=== PATIENT | female | born 1970 | race Caucasian/White ===

== ENCOUNTER 2020-11-12 02:03 | Emergency (ER) | payer OTHER, SELFPAY ==
[2020-11-12 02:30] LABS: Bilirubin Negative (Negative); Blood, Urine Moderate (Negative); Clarity Cloudy (Clear); Glucose, Urine (Dipstick) Negative (Negative); Ketone, Urine Negative (Negative); Leukocyte Trace (Negative); Nitrite Negative (Negative); Protein, Urine (Dipstick) 30 mg/dL (Neg-Trace); Urobilinogen 0.2 mg/dL (Less than 2); pH, Urine 5.5 (5.0-9.0)
[2020-11-12 02:31] LABS: Hemoglobin 9.2 g/dL (12.0-16.0); Mean Corpuscular HGB CONC 29.2 g/dL (32.0-36.0); Mean Corpuscular Hemoglobin 21.4 pg (27.0-31.0); Mean Corpuscular Volume 73.3 fL (78.0-98.0); Mean Platelet Volume 8.1 fL (7.4-10.4); Platelet Count 276 thou/uL (130-400); Red Blood Cell (RBC) Count 4.28 mill/uL (4.20-5.40); White Blood Cell (WBC) Count 7.3 thou/uL (4.8-10.8)
[2020-11-12 02:37] LABS: #Basophils 0.2 thou/uL (0.0-0.2); #Eosinphils 1.1 thou/uL (0.0-0.7); #Lymphocytes 1.5 thou/uL (1.20-3.40); #Monocytes 0.5 thou/uL (0.11-0.59); #Neutrophils 4.1 thou/uL (1.40-6.50); %Basophils 2.3 % (0.0-1.0); %Eosinophils 14.5 % (0.0-10.0); %Lymphocytes 20.6 % (21.0-51.0); %Monocytes 6.8 % (0.0-10.0); %Neutrophils 55.9 % (42.0-75.0); Bacteria/HPF Rare-Few HPF (None Seen); Mucous/LPF 3+ LPF (<2+)
[2020-11-12 02:38] LABS: Anisocytosis SLIGHT = 6-15 cells (100X) (0-5/hpf); Hypochromia SLIGHT = 6-15 cells (100X) (0-5/hpf); MDiff Complete? YES; Platelet Morphology Comment Appears Adequate; Pregnancy Test - Urine (BHCG) Negative (Negative); Pregu Control Background? CLEAR/WHITE (CLR/WHITE); Pregu Control Bar Appear? YES (CONTROL BAR)
[2020-11-12] MEDS ORDERED: Ketorolac Tromethamine 30 MG/ML VIAL ONE (02:43)
[2020-11-12 02:46] LABS: ALT (SGPT) 9 U/L (8-55); AST (SGOT) 14 U/L (5-34); Albumin 4.3 g/dL (3.5-5.0); Alkaline Phosphatase 44 U/L (40-110); Anion Gap 13 mmol/L (10-20); BUN (Urea Nitrogen) 16 mg/dL (7.0-18.7); Bilirubin, Total 0.3 mg/dL (0.2-1.2); Calc. Creatinine Clearance 0 mL/min (70-130); Calcium 9.1 mg/dL (7.8-10.44); Carbon Dioxide 24 mmol/L (22-29); Chloride 107 mmol/L (98-107); Globulin 3.4 g/dL (2.4-3.5); Glucose 125 mg/dL (70-105); Potassium 3.4 mmol/L (3.5-5.1); Protein, Total 7.7 g/dL (6.0-8.3); Sodium 141 mmol/L (136-145)
[2020-11-12] MEDS ORDERED: Ondansetron PF 4 MG/2 ML Vial ONE ×2 (02:46→03:13)
[2020-11-12] MEDS ORDERED: Promethazine HCl 25 MG/ML VIAL ONE (03:37)
[2020-11-12] MEDS ORDERED: Morphine 4 MG/ML VIAL ONE (04:27)
[2020-11-12 06:31] LABS: SARS-CoV-2 NAA Rapid Test Not Detected (NotDetected)
[2020-11-12] MEDS ORDERED: Sodium Chloride 0.9% 1,000 ML BAG ONE (07:18)
== END 2020-11-12 05:34 | disposition home or self-care (01) ==
LOC: MADERS 02:03
DX: N13.2 Hydronephrosis with renal and ureteral calculous obstruction (principal); K80.20 Calculus of gallbladder without cholecystitis without obstruction; D50.9 Iron deficiency anemia, unspecified
CPT/HCPCS: 0240U; 36415; 74176; 80053; 81003; 81015; 81025; 85025; 87086; 96374; 96375; 96376; J1885; J2270; J2405; J2550; J7050

== ENCOUNTER 2022-03-08 19:38 | Emergency (ER) | payer SELFPAY ==
[~2022-03-08 19:38] MED LIST: Sodium Chloride 0.9% 100 ML BAG ONE
[2022-03-08] MEDS ORDERED: HYDROcodone/Acetaminophen 5/325 mg Tablet ONE (20:16)
[2022-03-08] MEDS ORDERED: Boostrix 0.5 ML (Tdap) VIAL (>/=7 yrs of age) ONE (20:26)
[2022-03-08] MEDS ORDERED: Lidocaine 2% 20 ml MDV ONE (20:42)
[2022-03-08] MEDS ORDERED: CEFAZOLIN 1 GM VIAL ONE ×2 (21:13→21:42)
== END 2022-03-08 20:30 | disposition short-term general hospital (02) ==
LOC: MADERS 19:38
DX: S62.614B Displaced fracture of proximal phalanx of right ring finger, initial encounter for open fracture (principal); D64.9 Anemia, unspecified; Z23 Encounter for immunization; W22.8XXA Striking against or struck by other objects, initial encounter
CPT/HCPCS: 29125; 90471; 90715; 96365; J0690; J3490